=== PATIENT | male | born 1985 | race Caucasian/White ===

== ENCOUNTER 2024-08-21 14:42 | Emergency (ER) | payer SELFPAY ==
[2024-08-21 15:05] VITALS: BP 128/83; PULSE 78; RESP 18; TEMP 97.8; BMI 25.9
[2024-08-21] MEDS ORDERED: IBUPROFEN 600 MG TABLET (FP) PO ONE (16:01)
[2024-08-21] MEDS ORDERED: ACETAMINOPHEN 500 MG TABLET (FP) ONE (16:02)
[2024-08-21] MEDS: ACETAMINOPHEN 500 MG TABLET (FP) PO ONE (16:04)
[2024-08-21] MEDS: IBUPROFEN 600 MG TABLET (FP) PO ONE (16:04)
== END 2024-08-21 18:53 | disposition home or self-care (01) ==
LOC: JER 14:42 → JERFT 14:42
DX: S59.901A Unspecified injury of right elbow, initial encounter (principal); X50.1XXA Overexertion from prolonged static or awkward postures, initial encounter
CPT/HCPCS: 73070-TC-RT-FY; 99283-25